=== PATIENT | female | born 1975 | race Caucasian/White ===

== ENCOUNTER 2016-10-20 04:09 | Emergency (ER) | payer OTHER ==
[~2016-10-20] VITALS: Ht 154.9 cm; Wt 53.5 kg
[2016-10-20 04:53] VITALS: BP 110/75
[2016-10-20] MEDS ORDERED: AZITHROMYCIN250 MG ORAL (04:58)
[2016-10-20] MEDS ORDERED: NEXAFED30 MG ORAL (04:58)
[2016-10-20] MEDS ORDERED: PREDNISONE20 MG ORAL (04:58)
[2016-10-20] MEDS ORDERED: FLUCONAZOLE100 MG ORAL (04:59)
--- NOTE | 2016-10-20 04:59 | Emergency Room Report ---
History of Present Illness General Chief Complaint: Upper Respiratory Illness Source: Patient Present Illness HPI Is a 40-year-old female with no significant past medical history. She presents with chief complaint of cough congestion and shortness of breath. Onset for last 3 days. Had fever last week. Nose is very stuffy. no relief with over-the -counter medication. Also complaining of left ear pain. Worse with lying flat. Worse with coughing. Better with albuterol. Allergies: Coded Allergies: MEPERIDINE (Verified Allergy, Unknown, 10/20/16) SULFA (SULFONAMIDE ANTIBIOTICS) (Verified Allergy, Unknown, 10/20/16) Uncoded Allergies: IODINECONTRAST (Allergy, Unknown, 10/20/16) Patient History Past Medical History: see triage record, old chart reviewed Past Surgical History: none Pertinent Family History: none Social History: Denies: smoking Last Menstrual Period: October Now: No Immunizations: other Reviewed Nursing Documentation: PMH: Agreed, PSxH: Agreed Review of Systems Eye: Denies: blurred vision, eye pain ENT: Reports: hearing loss, nasal discharge, nose congestion, throat pain, Denies: ear pain, throat swelling Respiratory: Reports: cough, shortness of breath Cardiovascular: Denies: chest pain, palpitations Gastrointestinal: Denies: abdominal pain, diarrhea, nausea, vomiting Musculoskeletal: Denies: back pain, joint pain Skin: Denies: rash Neurological: Denies: headache, numbness Endocrine: Denies: increased thirst, increased urine Hematologic/Lymphatic: Denies: easy bruising All Other Systems: negative except mentioned in HPI Physical Exam Vital Signs Date Time Temp Pulse Resp B/P Pulse Ox O2 Delivery O2 Flow Rate FiO2 10/20/16 04:12 98.1 89 16 110/75 100 Room Air vitals unremarkable Sp02 EP Interpretation: reviewed, normal General Appearance: well appearing, no apparent distress, alert Head: normocephalic, atraumatic Eyes: bilateral eye EOMI, bilateral eye PERRL ENT: hearing grossly normal, uvula midline - Uvula enlarged, pharyngeal erythema, other - Turbinates enlarged and congested. Bilateral TMs with fluid levels. Neck: full range of motion, supple, no meningismus Respiratory: chest non-tender, lungs clear, normal breath sounds Cardiovascular #1: regular rate, rhythm, no murmur Gastrointestinal: normal bowel sounds, non tender, no mass, no organomegaly, no bruit, non-distended Musculoskeletal: back normal, gait/station normal, normal range of motion Psychiatric: mood/affect normal Skin: warm/dry Medical Decision Making Diagnostic Impression: Primary Impression: Upper respiratory infection Qualified Codes: J06.9 - Acute upper respiratory infection, unspecified; B97.89 - Other viral agents as the cause of diseases classified elsewhere Additional Impression: Otitis media of both ears Qualified Codes: H65.03 - Acute serous otitis media, bilateral ER Course Patient with viral infection complicated by bilateral otitis media. We'll treat symptomatically and on antibiotics. No evidence of sepsis, meningitis, pneumonia. Last Vital Signs Date Time Temp Pulse Resp B/P Pulse Ox O2 Delivery O2 Flow Rate FiO2 10/20/16 04:12 98.1 89 16 110/75 100 Room Air Status: improved Disposition: HOME, SELF-CARE Condition: Stable Scripts Fluconazole (FLUCONAZOLE) 100 Mg Tablet 100 MG ORAL DAILY, #1 TAB 0 Refills Prov: MEMO FIERRO M.D. 10/20/16 Pseudoephedrine Hcl* (NEXAFED*) 30 Mg Tablet 60 MG ORAL Q6H Y for congestion, #30 TAB Prov: MEMO FIERRO M.D. 10/20/16 Azithromycin* (ZITHROMAX*) 250 Mg Tablet 250 MG ORAL DAILY, #6 TAB 0 Refills Take two tablets by mouth today, then take one tablet by mouth daily for four days Prov: MEMO FIERRO M.D. 10/20/16 Prednisone* (PREDNISONE*) 20 Mg Tablet 40 MG ORAL DAILY, #6 TAB Prov: MEMO FIERRO M.D. 10/20/16 Patient Instructions: Upper Respiratory Infection, Adult MEMO FIERRO M.D. Oct 20, 2016 04:59
[2016-10-20 05:05] VITALS: BP 115/78
== END 2016-10-20 05:05 | disposition home or self-care (01) ==
LOC: EMR 04:35
DX: J06.9 Acute upper respiratory infection, unspecified (principal); H65.03 Acute serous otitis media, bilateral; Z88.8 Allergy status to other drugs, medicaments and biological substances; Z88.2 Allergy status to sulfonamides; Z91.041 Radiographic dye allergy status
CPT/HCPCS: 99284